=== PATIENT | male | born 1960 | race Caucasian/White ===

== ENCOUNTER 2024-11-04 17:25 | Emergency (ER) | payer OTHER, SELFPAY ==
--- NOTE | ~2024-11-04 | XR_ITS ---
XR ribs LT 2V w CXR 2V Ordering provider: Aiyana Zuleta History: . left rib pain, fall . Comparison: None. FINDINGS: BONES: Possible fracture of the left fourth rib is noted. MEDIASTINUM: The cardiac silhouette is slightly enlarged. Congestive gemma. LUNGS: No infiltrates, effusions or pneumothorax. OTHER: No free air under the diaphragm. Degenerative changes of the spine. IMPRESSION: 1. Possible fracture in the left fourth and 6th ribs. 2. No acute cardiopulmonary findings. Reviewed, dictated and finalized at location A.
--- NOTE | ~2024-11-04 | CT_ITS ---
CT brain wo con Ordering provider: Aiyana Zuleta PA-C History: 64 years Male with . head injury . Comparison: None. Technique: CT of the head without contrast. Radiation reduction technique utilized.The dose-length pr oduct was 681 mGy-cm. FINDINGS: BRAIN PARENCHYMA AND CSF SPACES: Mild leukoaraiosis and diffuse cortical atrophy. Mild atheromatous d isease. No midline shift, mass effect or hemorrhage. The brain parenchyma and CSF spaces are otherwi se normal. VISUALIZED PARANASAL SINUSES: Bilateral maxillary sinus disease with thickened wall suggestive of chr onic sinusitis. Bilateral ethmoid and frontal sinus disease. MASTOIDS: Well aerated. BONES: The bones appear intact. SOFT TISSUES: Visualized nasopharynx is normal. Superficial soft tissues are normal. IMPRESSION: No acute intracranial findings. Reviewed, dictated and finalized at location A.
--- NOTE | ~2024-11-04 | XR_ITS ---
XR hip LT 2V w AP pelvis Ordering provider: Aiyana Zuleta PA-C History: . left hip pain, fall . Comparison: None FINDINGS: BONES: No acute fracture or dislocation. HIP JOINT SPACES: Normal. SACROILIAC JOINT SPACES/LUMBAR SPINE: The sacroiliac joint spaces are normal. Mild degenerative sommer es of the visualized lower lumbar spine. PUBIC SYMPHYSIS: Normal. SOFT TISSUES: Normal. IMPRESSION: No acute osseous abnormality pelvis and left hip. Reviewed, dictated and finalized at location A.
--- NOTE | ~2024-11-04 | CT_ITS ---
CT cervical spine wo con Ordering provider: Aiyana Zuleta PA-C History: . fall, head injury . Comparison: None. Technique: CT of the cervical spine was performed without contrast. Sagittal and coronal reformatted images were also obtained and reviewed. Automated exposure control and iterative reconstruction rory hnique were employed. The dose-length product was 539.87 mGy-cm. FINDINGS: VERTEBRAE: No subluxation or acute fracture. The occipital condyles are intact. Degenerative changes of the spine. DISC SPACES: Narrowing of the disc C3-C4, C4-C5, C5-C6 and C6-C7. Multilevel facet joint disease. Mul tilevel uncovertebral joint osteoarthritic changes. Multilevel narrowing of the foramina and the lowe r cervical area. PARASPINOUS SOFT TISSUES: Normal. IMPRESSION: No acute osseous abnormality cervical spine. Multilevel degenerative disc disease. Reviewed, dictated and finalized at location A.
[2024-11-04 17:31] VITALS: BP 170/83; PULSE 87; RESP 20; TEMP 36.7; O2SAT 100
--- NOTE | 2024-11-04 17:36 | ED.FALL ---
HPI - Fall General Chief Complaint: Fall <Aiyana Zuleta PA-C - Last Filed: 11/05/24 11:02> Stated Complaint: fall from deck at 1400 today <Aiyana Zuleta PA-C - Last Filed: 11/05/24 11:02> Time Seen by Provider: 11/04/24 17:36 <Aiyana Zuleta PA-C - Last Filed: 11/05/24 11:02> Focused HPI: this is a 64-year-old male that presents to the emergency department after a fall this afternoon with head injury. Reports he fell about 2 ft off of a dock. Landed on his left side. He does believe he hit his head. He did not lose consciousness. He has had headache, nausea and vomiting. Also reports injuries to his left ribs and left hip. Denies focal numbness or weakness. GENERAL: Well-appearing, well-nourished, and in no acute distress. HEAD: Normocephalic, atraumatic. CHEST: Clear to auscultation. ?No respiratory distress. HEART: Regular rate and rhythm.? NEURO: ?Alert and oriented x3. Patient screened in triage and initial orders placed.? ?Additional care and disposition to be based upon?diagnostic testing and treatment. <Aiyana Zuleta PA-C - Last Filed: 11/05/24 11:02> History of Present Illness HPI Narrative: Agree with the HPI above. <Anthony Kraus MD - Last Filed: 11/04/24 22:24> Related Data Allergies/Adverse Reactions: Allergies Allergy/AdvReac Type Severity Reaction Status Date / Time codeine Allergy Nausea Verified 11/04/24 17:28 <Aiyana Zuleta PA-C - Last Filed: 11/05/24 11:02> Review of Systems Review of Systems: As reviewed above in HPI <Anthony Kraus MD - Last Filed: 11/04/24 22:24> Exam Narrative: GENERAL: [Well-appearing, well-nourished, and in no acute distress.] HEAD: [Normocephalic, atraumatic.] EYES: [PERRLA and EOMI.] ENT: Nares clear, no rhinorrhea or epistaxis. Mucous membranes moist. NECK: Supple. CHEST: [Clear to auscultation. No respiratory distress.] Tenderness to palpation of the left-sided chest wall without any crepitus or deformity. Clear breath sounds throughout. HEART: [Regular rate and rhythm]. No murmur heard. [Normal peripheral pulses.] ABDOMEN: [Soft, nondistended], [nontender], [No rigidity or guarding] EXTREMITIES: Normal range of motion. [No edema.] SKIN: Warm, dry, no rash. NEURO: [No focal deficits]. Alert and oriented [x3.] PSYCH: [Normal mood and affect.] <Anthony Kraus MD - Last Filed: 11/04/24 22:24> Course Vital Signs Vital signs: Vital Signs Temperature 98.1 F 11/04/24 17:31 Pulse Rate 87 11/04/24 17:31 Respiratory Rate 20 11/04/24 17:31 Blood Pressure 170/83 H 11/04/24 17:31 Pulse Oximetry 100 11/04/24 17:31 Temperature 97.9 F 11/04/24 20:14 Pulse Rate 87 11/04/24 20:14 Respiratory Rate 16 11/04/24 20:14 Blood Pressure 157/90 H 11/04/24 20:14 Pulse Oximetry 100 11/04/24 20:14 Oxygen Delivery Room Air 11/04/24 17:37 <Aiyana Zuleta PA-C - Last Filed: 11/05/24 11:02> Vital Signs Temperature 98.1 F 11/04/24 17:31 Pulse Rate 87 11/04/24 17:31 Respiratory Rate 20 11/04/24 17:31 Blood Pressure 170/83 H 11/04/24 17:31 Pulse Oximetry 100 11/04/24 17:31 Temperature 97.9 F 11/04/24 20:14 Pulse Rate 87 11/04/24 20:14 Respiratory Rate 16 11/04/24 20:14 Blood Pressure 157/90 H 11/04/24 20:14 Pulse Oximetry 100 11/04/24 20:14 Oxygen Delivery Room Air 11/04/24 17:37 <Anthony Kraus MD - Last Filed: 11/04/24 22:24> MDM - Fall MDM Narrative Medical decision making narrative: 64-year-old male presenting after falling off a deck. He states that he fell less than 3 ft and to his left side and left chest. Had a brief episode of nausea with dry heaving after feeling the wind knocked out of him. Symptoms have resolved aside from some left-sided rib cage pain at this time. Patient denies losing consciousness and does not take any blood thinners. He tells me has a history of right-sided rib fractures and feels similar. Imaging studies were obtained including head and neck CT given the fall and age as well as right-sided rib series and hip x-ray chest x-ray. Patient given a combination of pain medications including lidocaine patch, Toradol,, oxycodone p.o. Patient does have left-sided rib fracture of ribs 4 and 6 without any displacement or underlying hemothorax, atelectasis or pneumonia. Head CT and cervical spine CT were negative as well as the hip CT. Patient is ambulatory in the room and his pain is under control this time. Given incentive spirometer and educated on how to use this as well as pain medication prescriptions for home. He will follow up with his primary care provider or return with any worsening conditions. <Anthony Kraus MD - Last Filed: 11/04/24 22:24> Medical Records Attestation: I reviewed the patient's medical records. <Anthony Kraus MD - Last Filed: 11/04/24 22:24> Imaging Data Attestation: I personally reviewed and interpreted this imaging study as follows: <Anthony Kraus MD - Last Filed: 11/04/24 22:24> My impression: Impressions Head CT 11/04/24 17:55 IMPRESSION: No acute intracranial findings. Hip/Pelvis X-Ray 11/04/24 18:07 IMPRESSION: No acute osseous abnormality pelvis and left hip. Ribs w/Chest X-Ray 11/04/24 18:25 IMPRESSION: 1. Possible fracture in the left fourth and 6th ribs. 2. No acute cardiopulmonary findings. Cervical Spine CT 11/04/24 18:54 IMPRESSION: No acute osseous abnormality cervical spine. Multilevel degenerative disc disease. <Anthony Kraus MD - Last Filed: 11/04/24 22:24> Critical Care Time Critical Care Time Critical Care Time: No <Aiyana Zuleta PA-C - Last Filed: 11/05/24 11:02> Discharge Plan Discharge Clinical Impression: Fracture of rib of left side Qualifiers: Encounter type: initial encounter Rib fracture type: multiple ribs Fracture type: closed Qualified Code(s): S22.42XA - Multiple fractures of ribs, left side, initial encounter for closed fracture CHI (closed head injury) Qualifiers: Encounter type: initial encounter Qualified Code(s): S09.90XA - Unspecified injury of head, initial encounter <Aiyana Zuleta PA-C - Last Filed: 11/05/24 11:02> Patient Disposition: Home <Aiyana Zuleta PA-C - Last Filed: 11/05/24 11:02> Condition: Stable <Aiyana Zuleta PA-C - Last Filed: 11/05/24 11:02> Instructions: Antibiotic Form, How to Use an Incentive Spirometer (ED), Rib Fracture (ED), Head Injury (ED), Contusion in Adults (ED) <Aiyana Zuleta PA-C - Last Filed: 11/05/24 11:02> Additional Instructions: You have 2 rib fractures on the left side but no other anomalies or injury. We will send you home with pain medications and instructions on how to use your incentive spirometer. Follow-up with regular doctor. Return with any worsening concerns. <Aiyana Zuleta PA-C - Last Filed: 11/05/24 11:02> Patient Language: Bruneian <Aiyana Zuleta PA-C - Last Filed: 11/05/24 11:02> Prescriptions: New ibuprofen 800 mg tablet 800 mg PO TID PRN (Reason: pain) Qty: 30 0RF lidocaine 5 % adhesive patch,medicated 1 patch topical DAILY Qty: 15 0RF Rx Instructions: leave on most painful area for up to 12 hrs methocarbamol 750 mg tablet 750 mg PO TID PRN (Reason: pain) Qty: 20 0RF oxycodone 5 mg tablet 5 mg PO Q8H PRN (Reason: pain) Qty: 10 0RF acetaminophen [Tylenol Extra Strength] 500 mg tablet 1,000 mg PO TID PRN (Reason: pain) Qty: 30 0RF <Aiyana Zuleta PA-C - Last Filed: 11/05/24 11:02> Follow-up/Referrals: PHYSICIAN,CASH APPLICATION REPRESENTATIVE [Primary Care Provider] - <Aiyana Zuleta PA-C - Last Filed: 11/05/24 11:02> Time of Disposition: 22:24 <Aiyana Zuleta PA-C - Last Filed: 11/05/24 11:02> 22:24 <Anthnoy Karus MD - Last Filed: 11/04/24 22:24>
[2024-11-04 17:37] VITALS: BP 113/69; PULSE 84; RESP 20; TEMP 36.1; O2SAT 99
[2024-11-04 20:14] VITALS: BP 157/90; PULSE 87; RESP 16; TEMP 36.6; O2SAT 100
[2024-11-04] MEDS: LIDOCAINE 5% PATCH 1 PATCH TRANSDERM (21:42)
[2024-11-04] MEDS: KETOROLAC 30 MG/ML VIAL (*BKC) IM (21:42)
[2024-11-04] MEDS: oxyCODONE HCL (*CRX) 5 MG TAB IR PO (21:43)
== END 2024-11-04 22:39 | disposition home or self-care (01) ==
PROVIDERS: Emergency Provider Student in an Organized Health Care Education/Training Program
DX: S09.90XA Unspecified injury of head, initial encounter (principal); S22.42XA Multiple fractures of ribs, left side, initial encounter for closed fracture; M50.31 Other cervical disc degeneration, high cervical region; M48.02 Spinal stenosis, cervical region; W17.4XXA Fall from dock, initial encounter
CPT/HCPCS: 70450; 71046; 71100; 72125; 73502; 96372; 99284; A9270; J1885